=== PATIENT | male | born 1990 | race Caucasian/White ===

== ENCOUNTER 2017-05-20 04:44 | Emergency (ER) | payer BC, MEDICAID ==
[~2017-05-20] VITALS: Ht 175.3 cm; Wt 99.0 kg
[2017-05-20 04:47] VITALS: Ht 175.3 cm; Wt 99.0 kg
[2017-05-20] MEDS ORDERED: NPH10OT LEFT EAR (06:08)
--- NOTE | 2017-05-20 06:13 | ERA ---
ER Documentation Chief Complaint Date/Time DATE: 05/20/17 TIME: 06:10 Chief Complaint L ear muffled hearing w/pain HPI Otherwise healthy 26-year-old male presenting with a chief complaint of worsening earache over the past 3 days. 3 days ago patient started to have under hot tub seen along he can hold his breath with his friends and shortly after the symptoms began. Patient describes decrease in hearing. Patient denies headache, neck stiffness, fever, similar symptoms in past. Has not taken any medications to relieve the symptoms. Denies any aggravating or alleviating factors. Patient has no other complaints and describes no other associated manifestations. Nursing notes have been reviewed and are consistent with history given. ROS All systems reviewed and are negative except as per history of present illness. Medications Home Meds Active Scripts Neomycin/Polymyxin/Hydrocort* (Cortisporin* Otic) 10 Ml Susp, 4 DROP LEFT EAR QID for 7 Days, EA Prov:ASHA KUMAR PA-C 05/20/17 Allergies Allergies: Coded Allergies: No Known Allergy (Unverified , 05/20/17) PMhx/Soc Hx Alcohol Use: No Hx Substance Use: No Hx Tobacco Use: No Smoking Status: Never smoker Physical Exam Vitals Vital Signs Date Time Temp Pulse Resp B/P Pulse Ox O2 Delivery O2 Flow Rate FiO2 05/20/17 04:47 97.0 73 18 146/91 98 Physical Exam Const: Healthy-appearing. Well-nourished. Well-developed. No acute distress. Ears: White circumferential non-pus material obstructing the view of the tympanic membrane of the left ear. External auricle nontender to movement. Tympanic membrane of the right ear unremarkable with Hillary reflex visualized. External auditory ear canals nonerythematous bilaterally. Oral: No oral edema visualized. Mucous membranes moist and pink. Neck: No cervical lymphadenopathy, masses or goiter palpated. Non- tender. Trachea midline. Supple ~ No meningismus. Neur: Finger-rub test unremarkable. Awake, alert and oriented x3. Neurovascularly intact bilaterally. Pulm: No dyspnea, stridor, tripoding or drooling. Good air movement. Clear to auscultation bilaterally. Nose: Normal external nose; no discharge, septal deviation, or sinus tenderness. Head: Normocephalic, Atraumatic. Eyes: Non-injected; No scleral erythema, discharge or foreign body. EOMI and WEI bilaterally. Cardio: Regular rate and rhythm; No murmurs, gallops or rubs auscultated. Radial and posterior tibial pulses 2+ bilaterally. Capillary refill less than 2 seconds. Abd: Soft, non tender, non distended. No guarding, masses. Normal bowel sounds. No McBurney's point or suprapubic tenderness. MS: Normal motor strength, normal tone with gross examination. Skin: No petechiae or rashes. Good turgor. Back: No midline, flank or CVA tenderness. Ext: No cyanosis or edema. Normal movement of all extremities grossly observed. Psych: Normal Mood and Affect. Procedures/MDM 26-year-old male presenting with a chief complaint of left earache 3 days as described in history and physical examination. Ear was irrigated by the nursing staff. Foreign body was removed with a curette by me. Foreign body was white and resembled a rolled up piece of toilet paper. Hearing loss symptoms resolved. I will hearing loss, meningitis, intracranial pathology, cholesteatoma, or acute pathologies. Most likely diagnosis is Foreign body. Prophylactic Cortisporin prescribed. I have spoke with the patient regarding their condition and future management. They have verbally responded that they understand their status and treatment plan. The patients vitals are stable, and their current condition is appropriate for discharge. The patient will be given discharge instructions with return precautions. Departure Diagnosis: Primary Impression: Left ear pain Condition: Stable Patient Instructions: External Ear Infection (Adult) Additional Instructions: Follow up with your PCP within the next 1-3 days for a more thorough evaluation and a possible referral to a specialist. Return the the emergency department immediately if symptoms worsen or change. If you have any questions regarding medications, ask your pharmacist or us before you leave. If any adverse reactions occur while taking your medications, discontinue the treatment and return to the emergency department immediately. Take your medications as directed, and complete the entire course of treatment. ASHA KUMAR PA-C May 20, 2017 06:13
== END 2017-05-20 06:23 | disposition home or self-care (01) ==
LOC: FTE 04:44
DX: T16.2XXA Foreign body in left ear, initial encounter (principal); X58.XXXA Exposure to other specified factors, initial encounter; Y92.9 Unspecified place or not applicable
CPT/HCPCS: 69200; Z7502

== ENCOUNTER 2017-05-28 11:16 | Emergency (ER) | payer SELFPAY ==
[~2017-05-28] VITALS: Ht 167.6 cm; Wt 97.5 kg
[~2017-05-28 11:16] MED LIST: NPH10OT LEFT EAR
[2017-05-28 11:20] VITALS: Ht 167.6 cm; Wt 97.5 kg
[2017-05-28] MEDS ORDERED: NPH10OT LEFT EAR (12:05)
[2017-05-28] MEDS ORDERED: AMOX500C2 PO (12:05)
--- NOTE | 2017-05-28 12:37 | ERD ---
ER Documentation Chief Complaint Date/Time DATE: 05/28/17 TIME: 12:37 Chief Complaint Complains of right ear pain HPI This is a 27-year-old male presenting to the emergency department complaining of right ear pain for the past week, was evaluated at his facility about 1 week prior to being seen and had an ear lavage. He was prescribed Cortisporin prophylactically. Patient denies any fever, drainage ROS All systems reviewed and are negative except as per history of present illness. Medications Home Meds Active Scripts Amoxicillin* (Amoxicillin*) 500 Mg Cap, 500 MG PO BID for 10 Days, CAP Prov:PREETI MONTAÑO PA-C 05/28/17 Neomycin/Polymyxin/Hydrocort* (Cortisporin* Otic) 10 Ml Susp, 4 DROP LEFT EAR QID for 7 Days, EA Prov:ASHA KUMAR PA-C 05/20/17 Allergies Allergies: Coded Allergies: No Known Allergy (Unverified , 05/20/17) PMhx/Soc Medical and Surgical Hx: pt denies Medical Hx, pt denies Surgical Hx Hx Alcohol Use: No Hx Substance Use: No Hx Tobacco Use: No Physical Exam Vitals Vital Signs Date Time Temp Pulse Resp B/P Pulse Ox O2 Delivery O2 Flow Rate FiO2 05/28/17 11:20 97.7 82 20 125/83 100 Physical Exam Const: WDWN Head: Atraumatic Eyes: Normal Conjunctiva ENT: Normal External Ears, Nose and Mouth. cerumen vs mild discharge, Neck: Full range of motion..~ No meningismus. Resp: Clear to auscultation bilaterally Cardio: Regular rate and rhythm, no murmurs Abd: Soft, non tender, non distended. Normal bowel sounds Skin: No petechiae or rashes Back: No midline or flank tenderness Ext: No cyanosis, or edema Neur: Awake and alert Psych: Normal Mood and Affect Procedures/MDM 27-year-old male presenting to the emergency department with right ear pain for 1.5 week, differentials include cerumen impaction, foreign body, ruptured tympanic membrane with discharge. There was no evidence of this externa, mastoiditis. I discussed the patient to follow-up with a primary care physician to follow-up with an ENT specialist tomorrow. Patient stable to be discharged home with instructions to return to the ER for any worsening signs or symptoms Departure Diagnosis: Primary Impression: Left ear pain Condition: Stable Patient Instructions: Otitis Media, Abx Tx (Adult) Referrals: NO PRIMARY,CARE PHYSICIAN (PCP) Additional Instructions: Call your primary care doctor TOMORROW for an appointment during the next 1-2 days.See the doctor sooner or return here if your condition worsens before your appointment time. Take all medicines as directed. Return to this facility if you are not improving as expected. PREETI MONTAÑO PA-C May 28, 2017 12:37
== END 2017-05-28 12:37 | disposition home or self-care (01) ==
LOC: FTE 11:16
DX: H92.01 Otalgia, right ear (principal)
CPT/HCPCS: 99283